=== PATIENT | female | born 1940 | race Caucasian/White ===

== ENCOUNTER → 2018-02-08 | Emergency (ER) | payer MEDICARE, OTHER ==
[~2018-02-08] VITALS: Ht 162.6 cm; Wt 54.0 kg
[~2018-02-08] MED LIST: niCARDipine/sod cl 20mg/200ml 200 ML IV SCH
[2018-02-08 11:42] LABS: BASOPHILS # (AUTO) 0.1 X10'3 (0-0.2); BASOPHILS % (AUTO) 0.9 % (0-1); EOSINOPHILS # (AUTO) 0.1 X10'3 (0-0.9); EOSINOPHILS % (AUTO) 1.8 % (0-6); HEMATOCRIT 40.7 % (35.0-45.0); LYMPHOCYTES # (AUTO) 1.7 X10'3 (1.1-4.8); LYMPHOCYTES % (AUTO) 21.8 % (21-51); MEAN CORPUSCULAR HEMOGLOBIN 30.4 PG (27.0-31.0); MEAN CORPUSCULAR HGB CONC 34.4 % (33.0-36.5); MEAN CORPUSCULAR VOLUME 88.5 FL (78-98); MEAN PLATELET VOLUME 6.8 FL (7.4-10.4); MONOCYTES # (AUTO) 0.6 X10'3 (0-0.9); MONOCYTES % (AUTO) 7.1 % (2-12); NEUTROPHILS # (AUTO) 5.4 X10'3 (1.8-7.7); NEUTROPHILS % (AUTO) 68.4 % (42-75); PLATELET COUNT 289 X10'3 (140-440); RED CELL DISTRIBUTION WIDTH 13.8 % (11.5-14.5); WHITE BLOOD COUNT 7.9 X10'3 (4.5-11.0)
[2018-02-08 11:48] LABS: PARTIAL THROMBOPLASTIN TIME 24 SECONDS (22-32)
[2018-02-08 11:54] VITALS: BP 178/107
[2018-02-08 11:57] LABS: ALANINE AMINOTRANSFERASE 27 U/L (12-78); ALBUMIN 4.2 G/DL (3.4-5.0); ALBUMIN/GLOBULIN RATIO 1.2 (1.1-1.5); ALKALINE PHOSPHATASE 86 IU/L (46-116); ANION GAP 9 (8-16); ASPARTATE AMINO TRANSFERASE 22 U/L (10-37); BILIRUBIN,TOTAL 0.5 MG/DL (0.1-1.0); BLOOD UREA NITROGEN 13 MG/DL (7-18); BUN/CREATININE RATIO 13.7 (6.6-38.0); CALCIUM 9.8 MG/DL (8.5-10.1); CHLORIDE 101 MMOL/L (99-107); CREATININE 0.95 MG/DL (0.40-0.90); GLUCOSE 112 MG/DL (70-104); POTASSIUM 3.4 MMOL/L (3.5-5.1); SODIUM 140 MMOL/L (135-145); TOTAL PROTEIN 7.8 G/DL (6.4-8.2); TROPONIN I < 0.04 NG/ML (0.0-0.05); eGFR 57 ML/MIN
== END | disposition short-term general hospital (02) ==
LOC: ER 11:15
DX: I61.9 Nontraumatic intracerebral hemorrhage, unspecified (principal); I47.1 Supraventricular tachycardia; I16.0 Hypertensive urgency; Z88.0 Allergy status to penicillin; Z88.5 Allergy status to narcotic agent; Z88.2 Allergy status to sulfonamides; Z85.3 Personal history of malignant neoplasm of breast
CPT/HCPCS: 36415; 70450; 71045; 80053; 82948; 83880; 84484; 85025; 85610; 85730; 93005; 99291

== ENCOUNTER 2019-03-13 05:26 | Inpatient (IN) | payer MEDICARE, OTHER ==
[~2019-03-13] VITALS: Ht 165.1 cm; Wt 60.0 kg
[2019-03-13 06:30] LABS: EOSINOPHILS # (AUTO) 0.1 X10'3 (0-0.9); EOSINOPHILS % (AUTO) 2.3 % (0-6); HEMATOCRIT 35.8 % (35.0-45.0); HEMOGLOBIN 11.9 g/dl (12.0-16.0); LYMPHOCYTES # (AUTO) 0.5 X10'3 (1.1-4.8); LYMPHOCYTES % (AUTO) 11.8 % (21-51); MEAN CORPUSCULAR HEMOGLOBIN 27.6 PG (27.0-31.0); MEAN CORPUSCULAR HGB CONC 33.3 g/dL (33.0-36.5); MEAN CORPUSCULAR VOLUME 82.8 FL (78-98); MEAN PLATELET VOLUME 6.3 FL (7.4-10.4); MONOCYTES # (AUTO) 0.6 X10'3 (0-0.9); MONOCYTES % (AUTO) 13.1 % (2-12); NEUTROPHILS # (AUTO) 3.2 X10'3 (1.8-7.7); NEUTROPHILS % (AUTO) 71.8 % (42-75); PLATELET COUNT 334 X10'3 (140-440); RED BLOOD COUNT 4.32 X10'6 (4.20-5.60); RED CELL DISTRIBUTION WIDTH 14.9 % (11.5-14.5); WHITE BLOOD COUNT 4.4 X10'3 (4.5-11.0)
[2019-03-13] MEDS ORDERED: AMLO2.5T2 PO (06:34)
[2019-03-13] MEDS ORDERED: KEP500T PO (06:34)
[2019-03-13] MEDS ORDERED: DOXY25TA58 (06:35)
[2019-03-13 06:42] LABS: ALANINE AMINOTRANSFERASE 17 U/L (12-78); ALBUMIN/GLOBULIN RATIO 0.9 (1.1-1.5); ALKALINE PHOSPHATASE 167 IU/L (46-116); ANION GAP 8 (8-16); ASPARTATE AMINO TRANSFERASE 19 U/L (10-37); BILIRUBIN,TOTAL 0.3 MG/DL (0.1-1.0); BLOOD UREA NITROGEN 11 MG/DL (7-18); BUN/CREATININE RATIO 11.3 (6.6-38.0); CALCIUM 9.1 MG/DL (8.5-10.1); CHLORIDE 106 MMOL/L (99-107); CREATININE 0.97 MG/DL (0.40-0.90); GLUCOSE 96 MG/DL (70-104); POTASSIUM 3.6 MMOL/L (3.5-5.1); SODIUM 142 MMOL/L (135-145); TOTAL CARBON DIOXIDE 28.5 MMOL/L (24-32); TOTAL PROTEIN 6.3 G/DL (6.4-8.2); eGFR 55 ML/MIN
[2019-03-13 06:49] LABS: INR 1.1 INR; PARTIAL THROMBOPLASTIN TIME 27 SECONDS (22-32)
[2019-03-13] MEDS ORDERED: LIDOcaine 1% 30ml preserv. free vial IJ ONE (07:05)
--- NOTE | 2019-03-13 08:49 | NUR ---
pt signed consent for thoracentesis and procedure done and 800ml drained off. sample sent to lab. pt started to cough pretty good at end of fluid draining.
[2019-03-13] MEDS ORDERED: diatrozoate meglu/diatrozoate sod (37% iodine) 120ML oral solution PO ONE (09:00)
[2019-03-13] MEDS ORDERED: potassium Cl 40MEQ/NS 500ml 500 ML IV PRN ×2 (09:10)
[2019-03-13] MEDS ORDERED: ondansetron/PF 4mg/2ml inj IV PRN (09:10)
[2019-03-13] MEDS ORDERED: potassium Cl 20 mEq SR tablet PO PRN ×2 (09:10)
[2019-03-13] MEDS ORDERED: magnesium Cl slow-release 64mg tablet PO PRN (09:10)
[2019-03-13] MEDS ORDERED: magnesium 4gm in 100ml NS 100 ML IV PRN (09:10)
[2019-03-13] MEDS ORDERED: magnesium 2GM in 50ml NS 50 ML IV PRN (09:10)
[2019-03-13] MEDS ORDERED: mag hydrox/Alum hydrox/simeth 30ml oral suspension PO PRN (09:10)
[2019-03-13] MEDS ORDERED: acetaminophen 325mg tablet PO PRN ×2 (09:10)
[2019-03-13] MEDS ORDERED: HYDROcodone/acetaminophen 5mg/325mg tablet PO PRN (09:10)
[2019-03-13] MEDS ORDERED: magnesium hydroxide 30ml (MOM) UD suspension PO PRN (09:10)
[2019-03-13] MEDS ORDERED: morphine 2 MG/ML inj. syringe IV PRN (09:10)
[2019-03-13 09:13] LABS: ALBUMIN,BODY FLUID 2.6 G/DL; LDH,BODY FLUID 197 U/L; TOTAL PROTEIN,BODY FLUID 4.3 G/DL
[2019-03-13 09:16] LABS: BFAPPEAR CLOUDY; BFCOLOR RED; BFVOLUME 30 ML
[2019-03-13 09:17] LABS: BF RBC COUNT 163856 /CU MM; BF WBC COUNT 605 /CU MM (0-1000)
[2019-03-13 09:23] LABS: EOSINOPHILS,BODY FLUID 2 %; LYMPHOCYTES,BODY FLUID 63 %; MONOCYTES,BODY FLUID 25 %; NEUTROPHILS,BODY FLUID 10 %
[2019-03-13 09:24] LABS: BF MESOTHELIAL CELLS MODERATE
[2019-03-13 09:33] LABS: BFSOURCE LEFT PLEURAL FLD
[2019-03-13] MEDS: normal saline 1000ml 1,000 ML IV SCH (09:44)
--- NOTE | 2019-03-13 09:45 | NUR ---
ivf bag was not scanning
[2019-03-13 10:00] VITALS: BP 90/55
--- NOTE | 2019-03-13 10:08 | NUR ---
ATTEMPTED TO CALL REPORT. NURSE IS ROUNDING WITH THE HOSPITALIST ON THE FLOOR.
--- NOTE | 2019-03-13 10:20 | NUR ---
Patient in room ORTHO 4021. I have received report from Basia GUZMÁN in the ER and had the opportunity to ask questions and assume patient care.
[2019-03-13 10:45] VITALS: BP 125/69
--- NOTE | 2019-03-13 10:45 | NUR ---
Patient came to floor and went to room 4026X
--- NOTE | 2019-03-13 11:48 | NUR ---
CT called and no order for contrast has been put in wit CT of head and chest order, Dr. Will paged to ask for contrast order, will continue to monitor
[2019-03-13] MEDS: albuterol 2.5 MG/3 ML nebule NEB SCH (12:00)
[2019-03-13 18:00] VITALS: BP 147/78
--- NOTE | 2019-03-13 18:15 | NUR ---
Problems reprioritized. Patient report given, questions answered & plan of care reviewed with Alannah GUZMÁN.
--- NOTE | 2019-03-13 18:52 | NUR ---
Patient in room ORTHO 4021. I have received report from Saleem GUZMÁN and had the opportunity to ask questions and assume patient care.
[2019-03-13] MEDS: heparin, porcine 5000 units/ml vial SQ SCH (19:15)
[2019-03-13] MEDS: levetiracetam 250mg tablet PO SCH (19:16)
--- NOTE | 2019-03-13 20:34 | NUR ---
PATIENT REFUSED HEPARIN TONIGHT. BOTH SHE AND HER STATED SHE IS NOT TO HAVE ANY ANTICOAGS D/T MICRO HOLES IN HER SKULL, PER PATIENT'S MD. WILL ASK THEM TO BRING ANY DOCUMENTATION SUCH. DR. MANE NOTIFIED, AND WILL INFORM DAY SHIFT OF THIS.
[2019-03-13] MEDS ORDERED: diatr meglu/diatrizoate 30ml oral sol.-(3 dose) bottle PO ONE (21:00)
[2019-03-13 22:00] VITALS: BP 123/73
[2019-03-14] MEDS: normal saline 1000ml 1,000 ML IV SCH ×2 (01:41→13:44)
[2019-03-14 06:00] VITALS: BP 110/66
--- NOTE | 2019-03-14 06:32 | NUR ---
Problems reprioritized. Patient report given, questions answered & plan of care reviewed with Saleem GUZMÁN.
--- NOTE | 2019-03-14 06:38 | NUR ---
Patient in room ORTHO 4021. I have received report from Alannah GUZMÁN and had the opportunity to ask questions and assume patient care.
[2019-03-14] MEDS ORDERED: diatr meglu/diatrizoate 30ml oral sol.-(3 dose) bottle PO ONE ×2 (07:00→09:00)
[2019-03-14 07:19] LABS: BASOPHILS % (AUTO) 0.9 % (0-1); EOSINOPHILS # (AUTO) 0.1 X10'3 (0-0.9); EOSINOPHILS % (AUTO) 2.2 % (0-6); HEMATOCRIT 35.1 % (35.0-45.0); HEMOGLOBIN 11.6 g/dl (12.0-16.0); LYMPHOCYTES # (AUTO) 0.5 X10'3 (1.1-4.8); LYMPHOCYTES % (AUTO) 10.3 % (21-51); MEAN CORPUSCULAR HGB CONC 33.2 g/dL (33.0-36.5); MEAN CORPUSCULAR VOLUME 84.3 FL (78-98); MEAN PLATELET VOLUME 6.5 FL (7.4-10.4); MONOCYTES # (AUTO) 0.5 X10'3 (0-0.9); MONOCYTES % (AUTO) 9.8 % (2-12); NEUTROPHILS # (AUTO) 3.9 X10'3 (1.8-7.7); NEUTROPHILS % (AUTO) 76.8 % (42-75); PLATELET COUNT 320 X10'3 (140-440); RED BLOOD COUNT 4.16 X10'6 (4.20-5.60); RED CELL DISTRIBUTION WIDTH 14.6 % (11.5-14.5)
[2019-03-14] MEDS: levetiracetam 250mg tablet PO SCH (07:21)
[2019-03-14] MEDS: heparin, porcine 5000 units/ml vial SQ SCH (07:23)
[2019-03-14] MEDS: albuterol 2.5 MG/3 ML nebule NEB SCH ×4 (07:30→12:08)
--- NOTE | 2019-03-14 07:31 | NUR ---
Respiratory has not administered neb treatment will page and continue to monitor patient
[2019-03-14 07:35] LABS: ALANINE AMINOTRANSFERASE 15 U/L (12-78); ALBUMIN 2.7 G/DL (3.4-5.0); ALBUMIN/GLOBULIN RATIO 0.9 (1.1-1.5); ALKALINE PHOSPHATASE 151 IU/L (46-116); ANION GAP 8 (8-16); ASPARTATE AMINO TRANSFERASE 17 U/L (10-37); BILIRUBIN,TOTAL 0.4 MG/DL (0.1-1.0); BLOOD UREA NITROGEN 9 MG/DL (7-18); BUN/CREATININE RATIO 11.5 (6.6-38.0); CALCIUM 8.3 MG/DL (8.5-10.1); CHLORIDE 108 MMOL/L (99-107); CREATININE 0.78 MG/DL (0.40-0.90); GLUCOSE 89 MG/DL (70-104); POTASSIUM 3.5 MMOL/L (3.5-5.1); SODIUM 143 MMOL/L (135-145); TOTAL CARBON DIOXIDE 27.5 MMOL/L (24-32); TOTAL PROTEIN 5.8 G/DL (6.4-8.2); eGFR 71 ML/MIN
[2019-03-14] MEDS ORDERED: furosemide 10 MG/1 ML 10ml inj IV SCH (08:00)
[2019-03-14] MEDS ORDERED: K and/or MAG REPLACEMENT MC SCH (08:00)
[2019-03-14] MEDS ORDERED: amLODIPine 2.5mg tablet PO SCH (08:00)
[2019-03-14] MEDS ORDERED: iohexol 300mg/ml 100ml inj. ONE (09:13)
[2019-03-14 09:16] LABS: LACTATE DEHYDROGENASE 207 U/L (81-234)
--- NOTE | 2019-03-14 09:54 | NUR ---
RT WAS NEVER NOTIFIED ON 03/13 ABOUT PTS NEW SVN ORDERS UNTIL 03/14 AT 0947. MEDS HAVE BEEN ACKNOWLEDGED AND NON ADMINISTERED BY RN SINCE YESTERDAY. WILL START SCHEDULED SVN TXS 1100
[2019-03-14 10:00] VITALS: BP 108/68
[2019-03-14] MEDS ORDERED: metoprolol tartrate 12.5mg (1/2 tablet) PO SCH ×2 (11:50→20:00)
[2019-03-14 11:55] VITALS: BP_SYST 108
--- NOTE | 2019-03-14 12:49 | NUR ---
O2 Sat at rest on room air:_92__% If below 89%: Recovery O2 Sat at rest on ___LPM:___%:___% via (mask/nasal cannula, etc..) No further documentation is necessary. If O2 Sat did not drop below 89% on room air,ambulate patient on room air. O2 Sat while ambulating on room air:_88__% Recovery O2 Sat while ambulating on _2__LPM:__95_% No further documentation is necessary. If patient does not drop below 89% while ambulating, he/she does not qualify for home O2.
--- NOTE | 2019-03-14 12:59 | NUR ---
paged Dr. trujillo that Patient qualified for Home O2, also re outpatient biopsy please call me
--- NOTE | 2019-03-14 13:45 | NUR ---
PAGER ID: [phone] MESSAGE: Julissa Radha0 grupo Rafiq Anderson in [id number]- we need a qualifying dx code in order for medicare to pay for the o2. She did physically qualify but we need a dx code (such as lung malignancy?) clearly stated in your progress note or dc summary. Thanks!
--- NOTE | 2019-03-14 13:47 | NUR ---
per she will write her progress note with her findings so will be available
[2019-03-14] MEDS ORDERED: METO25TA6 PO (14:52)
--- NOTE | 2019-03-14 15:19 | NUR ---
Dr. Will paged to Please call isabell at ext [phone] re diagnosis codes to qualify for home O2, will continue to monitor
--- NOTE | 2019-03-14 16:37 | NUR ---
Patient discharged to home with , patient was stable at discharge and had home O2 delivered to hospital room, patient educated on discharge instructions and follow up appointments, new medications called into preferred pharmacy
== END 2019-03-14 16:29 | disposition home or self-care (01) | DRG 189 ==
LOC: ER 05:26 → ORTHO 4S 11:03
PROVIDERS: ADMIT Internal Medicine; ATTEND Internal Medicine
PROC: 0W9B3ZZ Drainage of Left Pleural Cavity, Percutaneous Approach (ICD-10-PCS; principal; 2019-03-13)
PROC: BW281ZZ Computerized Tomography (CT Scan) of Head using Low Osmolar Contrast (ICD-10-PCS; 2019-03-14)
PROC: BW251ZZ Computerized Tomography (CT Scan) of Chest, Abdomen and Pelvis using Low Osmolar Contrast (ICD-10-PCS; 2019-03-14)
DX: J96.01 Acute respiratory failure with hypoxia (principal); I47.1 Supraventricular tachycardia; J90 Pleural effusion, not elsewhere classified; E04.2 Nontoxic multinodular goiter; G40.909 Epilepsy, unspecified, not intractable, without status epilepticus; I10 Essential (primary) hypertension; R74.8 Abnormal levels of other serum enzymes; K80.20 Calculus of gallbladder without cholecystitis without obstruction; Z88.0 Allergy status to penicillin; Z88.2 Allergy status to sulfonamides; Z88.5 Allergy status to narcotic agent; Z79.899 Other long term (current) drug therapy; Z85.3 Personal history of malignant neoplasm of breast
CPT/HCPCS: 32555; 36415; 70470; 71045; 71260; 74177; 80053; 82042; 83605; 83615; 83735; 83986; 84157; 85025; 85379; 85610; 85730; 87040; 87070; 87077; 87186; 88108; 88305; 89051; 93005; 93306; 94640; 94760; 97116; 97161; 97530; 99285; G0378; J1644; J1940; J3490; J7030; Q9963; Q9967

== ENCOUNTER 2019-03-19 08:46 | Inpatient (IN) | payer MEDICARE, OTHER ==
[~2019-03-19] VITALS: Ht 162.6 cm; Wt 58.3 kg
[~2019-03-19 08:46] MED LIST changes: +AMLO2.5T2 PO; +DOXY25TA58; +KEP500T PO; +METO25TA6 PO; -niCARDipine/sod cl 20mg/200ml 200 ML IV SCH
[2019-03-19 09:25] LABS: BASOPHILS # (AUTO) 0.1 X10'3 (0-0.2); BASOPHILS % (AUTO) 1.2 % (0-1); EOSINOPHILS # (AUTO) 0.1 X10'3 (0-0.9); EOSINOPHILS % (AUTO) 1.6 % (0-6); HEMATOCRIT 36.6 % (35.0-45.0); HEMOGLOBIN 12.2 g/dl (12.0-16.0); LYMPHOCYTES # (AUTO) 0.9 X10'3 (1.1-4.8); LYMPHOCYTES % (AUTO) 12.1 % (21-51); MEAN CORPUSCULAR HEMOGLOBIN 27.4 PG (27.0-31.0); MEAN CORPUSCULAR HGB CONC 33.4 g/dL (33.0-36.5); MEAN PLATELET VOLUME 6.5 FL (7.4-10.4); MONOCYTES # (AUTO) 0.7 X10'3 (0-0.9); MONOCYTES % (AUTO) 9.1 % (2-12); NEUTROPHILS # (AUTO) 5.5 X10'3 (1.8-7.7); PLATELET COUNT 395 X10'3 (140-440); RED BLOOD COUNT 4.46 X10'6 (4.20-5.60); RED CELL DISTRIBUTION WIDTH 14.6 % (11.5-14.5); WHITE BLOOD COUNT 7.3 X10'3 (4.5-11.0)
[2019-03-19 09:44] LABS: ALBUMIN 2.7 G/DL (3.4-5.0); ALBUMIN/GLOBULIN RATIO 0.8 (1.1-1.5); ALKALINE PHOSPHATASE 154 IU/L (46-116); ANION GAP 10 (8-16); ASPARTATE AMINO TRANSFERASE 10 U/L (10-37); BILIRUBIN,TOTAL 0.2 MG/DL (0.1-1.0); BLOOD UREA NITROGEN 19 MG/DL (7-18); BUN/CREATININE RATIO 22.6 (6.6-38.0); CALCIUM 8.6 MG/DL (8.5-10.1); CHLORIDE 103 MMOL/L (99-107); CREATININE 0.84 MG/DL (0.40-0.90); GLUCOSE 112 MG/DL (70-104); POTASSIUM 3.3 MMOL/L (3.5-5.1); SODIUM 140 MMOL/L (135-145); TOTAL CARBON DIOXIDE 27.2 MMOL/L (24-32); TOTAL PROTEIN 6.2 G/DL (6.4-8.2); eGFR 65 ML/MIN
[2019-03-19 10:00] LABS: PARTIAL THROMBOPLASTIN TIME 27 SECONDS (22-32)
[2019-03-19 10:03] LABS: ALANINE AMINOTRANSFERASE 19 U/L (12-78)
--- NOTE | 2019-03-19 10:05 | NUR ---
assisted to bsc per patient's request.
--- NOTE | 2019-03-19 10:40 | NUR ---
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
[2019-03-19] MEDS ORDERED: mag hydrox/Alum hydrox/simeth 30ml oral suspension PO PRN (11:45)
[2019-03-19] MEDS ORDERED: ondansetron/PF 4mg/2ml inj IV PRN (11:45)
[2019-03-19] MEDS ORDERED: magnesium hydroxide 30ml (MOM) UD suspension PO PRN (11:45)
[2019-03-19] MEDS ORDERED: LIDOcaine 1%/PF 5ML 10 MG/ML VIAL ONE (15:08)
--- NOTE | 2019-03-19 15:42 | NUR ---
I have received report from Rayne GUZMÁN in the ED and had the opportunity to ask questions and assume patient care.
[2019-03-19 15:45] VITALS: BP 136/82
[2019-03-19 15:48] VITALS: BP 132/80
--- NOTE | 2019-03-19 15:57 | NUR ---
Patient arrived to the unit, placed on telemetry monitoring, vital signs obtained, belongings placed on bedside dresser, and patient oriented to the room and call light. Chest tube clamped per IR. Will continue to monitor patient. Addendum: 03/19/19 at 1821 by Lulu Aguilera RN 2 RN skin check completed
[2019-03-19] MEDS: HYDROcodone/acetaminophen 5mg/325mg tablet PO PRN (17:41)
--- NOTE | 2019-03-19 17:44 | NUR ---
PAGER ID: [phone] MESSAGE: [phone] Celestina Shaikh Pt's family is asking if lung biopsy will be done, chest tube placed, no order for biopsy. Thank you. Please call Lulu # [phone]
--- NOTE | 2019-03-19 18:15 | NUR ---
Patient in room PCU 3027. I have received report from Lulu GUZMÁN and had the opportunity to ask questions and assume patient care.
[2019-03-19 18:18] VITALS: BP 114/72
--- NOTE | 2019-03-19 18:25 | NUR ---
PAGER ID: [phone] MESSAGE: RE: Rafiq Anderson, room 2027t. Pt has consistant HR of 165, BP 131/88. Family has questions concerning future biopsy of lung mass. Thanks! -Sim [facility] [place] #[id number]
--- NOTE | 2019-03-19 18:25 | NUR ---
Problems reprioritized. Patient report given, questions answered & plan of care reviewed with Sim GUZMÁN. Patient stable at transfer of care.
[2019-03-19] MEDS ORDERED: diltiazem 5mg/ml 5ml inj. IV ONE (18:30)
--- NOTE | 2019-03-19 18:35 | NUR ---
Dr. Renteria ordered 10mg IV of cardizem for Pts HR 165
--- NOTE | 2019-03-19 19:03 | NUR ---
PAGER ID: [phone] MESSAGE: SAMUEL Rafiq Anderson, room 202. 10mg Cardizem IV given. HR dropped to 80s for 5 minutes. Now in the 140-150s -Sim PCU #[id number]
[2019-03-19] MEDS: levetiracetam 250mg tablet PO SCH (19:59)
--- NOTE | 2019-03-19 20:25 | NUR ---
Patient in room PCU 3027. I have received report from Sim GUZMÁN and had the opportunity to ask questions and assume patient care.
--- NOTE | 2019-03-19 20:25 | NUR ---
Problems reprioritized. Patient report given, questions answered & plan of care reviewed with Augusto GUZMÁN.
[2019-03-19] MEDS: metoprolol tartrate 12.5mg (1/2 tablet) PO SCH (20:37)
[2019-03-19 23:00] VITALS: BP 106/64
[2019-03-20] VITALS (19 sets, daily range): BP systolic 94–125; BP diastolic 57–96
--- NOTE | 2019-03-20 01:51 | NUR ---
Paged Dr. Duffy PAGER ID: [phone] MESSAGE: Dez GUZMÁN [phone] [id number] Rafiq Anderson: K+ 3.3. No replacement ordered. Would you like to order K+ replacement protocol? Thank you.
[2019-03-20] MEDS ORDERED: potassium Cl 20 mEq SR tablet PO PRN ×2 (01:55)
[2019-03-20] MEDS ORDERED: potassium Cl 40MEQ/NS 500ml 500 ML IV PRN ×2 (01:55)
[2019-03-20 05:23] LABS: ALBUMIN 2.4 G/DL (3.4-5.0); ANION GAP 8 (8-16); BASOPHILS # (AUTO) 0.1 X10'3 (0-0.2); BASOPHILS % (AUTO) 1.2 % (0-1); BLOOD UREA NITROGEN 18 MG/DL (7-18); CALCIUM 8.6 MG/DL (8.5-10.1); CHLORIDE 103 MMOL/L (99-107); CREATININE 0.82 MG/DL (0.40-0.90); EOSINOPHILS % (AUTO) 0.4 % (0-6); GLUCOSE 96 MG/DL (70-104); HEMOGLOBIN 11.5 g/dl (12.0-16.0); LYMPHOCYTES # (AUTO) 0.9 X10'3 (1.1-4.8); LYMPHOCYTES % (AUTO) 11.6 % (21-51); MEAN CORPUSCULAR HEMOGLOBIN 27.5 PG (27.0-31.0); MEAN CORPUSCULAR HGB CONC 33.7 g/dL (33.0-36.5); MEAN CORPUSCULAR VOLUME 81.7 FL (78-98); MEAN PLATELET VOLUME 6.6 FL (7.4-10.4); MONOCYTES # (AUTO) 0.5 X10'3 (0-0.9); MONOCYTES % (AUTO) 6.1 % (2-12); NEUTROPHILS # (AUTO) 6.6 X10'3 (1.8-7.7); NEUTROPHILS % (AUTO) 80.7 % (42-75); PLATELET COUNT 398 X10'3 (140-440); RED BLOOD COUNT 4.16 X10'6 (4.20-5.60); RED CELL DISTRIBUTION WIDTH 14.6 % (11.5-14.5); SODIUM 139 MMOL/L (135-145); TOTAL CARBON DIOXIDE 28.2 MMOL/L (24-32); WHITE BLOOD COUNT 8.2 X10'3 (4.5-11.0); eGFR 67 ML/MIN
--- NOTE | 2019-03-20 07:35 | NUR ---
Chest tube unclamped per angio's request, placed on low continuous suction @ 20mmHg. Yesterday's drainage marked to track output from today.
[2019-03-20] MEDS: levetiracetam 250mg tablet PO SCH ×2 (07:40→20:21)
[2019-03-20] MEDS: metoprolol tartrate 12.5mg (1/2 tablet) PO SCH ×2 (07:43→20:22)
[2019-03-20] MEDS: amLODIPine 2.5mg tablet PO SCH (07:43)
[2019-03-20] MEDS ORDERED: enoxaparin 40mg/0.4ml syringe SUBCUT SCH (08:00)
--- NOTE | 2019-03-20 08:02 | NUR ---
Patient in room PCU 3027. I have received report from Dez GUZMÁN and had the opportunity to ask questions and assume patient care. Patient sleeping, will continue to monitor
[2019-03-20] MEDS ORDERED: normal saline 1000ml 1,000 ML IV SCH (10:57)
[2019-03-20] MEDS ORDERED: fentaNYL/PF 50MCG/1 ML 2ML syringe IV PRN (11:00)
[2019-03-20] MEDS ORDERED: midazolam 2 mg/2 ml injection IV PRN (11:00)
[2019-03-20] MEDS ORDERED: LIDOcaine 1%/PF 5ML 10 MG/ML VIAL SQ ONE (11:00)
[2019-03-20] MEDS ORDERED: fentaNYL/PF 50MCG/1 ML 2ML syringe ONE (11:01)
[2019-03-20] MEDS ORDERED: midazolam 2 mg/2 ml injection ONE (11:01)
--- NOTE | 2019-03-20 12:14 | NUR ---
Sent page to Dr. Renteria: PAGER ID: [phone] MESSAGE: [id number] Rafiq Anderson: Patient is vomiting after receiving fentanyl during biopsy. Zofran is ineffective, can she have something else? Thanks, Lulu [phone]
[2019-03-20] MEDS ORDERED: metoclopramide 5 mg/ml inj IV PRN (12:15)
--- NOTE | 2019-03-20 14:00 | NUR ---
Noticed patient's chest tube water seal chamber was not bubbling at all. Suction works and is properly attached. Called Christy GUZMÁN in Angio, she said no bubbling is okay because the chest tube is purely for drainage. Will continue to monitor.
--- NOTE | 2019-03-20 18:15 | NUR ---
Patient in room PCU 3027. I have received report from Lulu GUZMÁN and had the opportunity to ask questions and assume patient care.
--- NOTE | 2019-03-20 18:16 | NUR ---
Problems reprioritized. Patient report given, questions answered & plan of care reviewed with Dez GUZMÁN. Patient stable at transfer of care.
[2019-03-21] VITALS (7 sets, daily range): BP systolic 103–122; BP diastolic 59–74
[2019-03-21 05:31] LABS: ALBUMIN 2.2 G/DL (3.4-5.0); ANION GAP 7 (8-16); BLOOD UREA NITROGEN 18 MG/DL (7-18); BUN/CREATININE RATIO 23.7 (6.6-38.0); CALCIUM 8.1 MG/DL (8.5-10.1); CHLORIDE 107 MMOL/L (99-107); CREATININE 0.76 MG/DL (0.40-0.90); GLUCOSE 86 MG/DL (70-104); POTASSIUM 4.1 MMOL/L (3.5-5.1); SODIUM 139 MMOL/L (135-145); TOTAL CARBON DIOXIDE 25.3 MMOL/L (24-32); eGFR 73 ML/MIN
[2019-03-21 05:48] LABS: BASOPHILS # (AUTO) 0.1 X10'3 (0-0.2); BASOPHILS % (AUTO) 0.7 % (0-1); EOSINOPHILS # (AUTO) 0.1 X10'3 (0-0.9); HEMATOCRIT 32.8 % (35.0-45.0); LYMPHOCYTES # (AUTO) 0.6 X10'3 (1.1-4.8); LYMPHOCYTES % (AUTO) 7.9 % (21-51); MEAN CORPUSCULAR HEMOGLOBIN 27.5 PG (27.0-31.0); MEAN CORPUSCULAR HGB CONC 33.4 g/dL (33.0-36.5); MEAN CORPUSCULAR VOLUME 82.3 FL (78-98); MEAN PLATELET VOLUME 6.4 FL (7.4-10.4); MONOCYTES # (AUTO) 0.7 X10'3 (0-0.9); MONOCYTES % (AUTO) 8.3 % (2-12); NEUTROPHILS # (AUTO) 6.6 X10'3 (1.8-7.7); NEUTROPHILS % (AUTO) 82.1 % (42-75); PLATELET COUNT 395 X10'3 (140-440); RED BLOOD COUNT 3.99 X10'6 (4.20-5.60); RED CELL DISTRIBUTION WIDTH 14.6 % (11.5-14.5); WHITE BLOOD COUNT 8.1 X10'3 (4.5-11.0)
--- NOTE | 2019-03-21 06:18 | NUR ---
Patient in room PCU 3027. I have received report from Dez GUZMÁN and had the opportunity to ask questions and assume patient care. Patient sleeping, will continue to monitor.
--- NOTE | 2019-03-21 06:20 | NUR ---
Problems reprioritized. Patient report given, questions answered & plan of care reviewed with Lulu GUZMÁN.
[2019-03-21] MEDS: metoprolol tartrate 12.5mg (1/2 tablet) PO SCH ×2 (08:00→20:16)
[2019-03-21] MEDS: amLODIPine 2.5mg tablet PO SCH (08:00)
[2019-03-21] MEDS: levetiracetam 250mg tablet PO SCH ×2 (08:15→20:16)
[2019-03-21] MEDS: acetaminophen 325mg tablet PO PRN ×2 (14:58→20:17)
--- NOTE | 2019-03-21 18:30 | NUR ---
Problems reprioritized. Patient report given, questions answered & plan of care reviewed with Leti GUZMÁN.
--- NOTE | 2019-03-21 19:14 | NUR ---
Patient in room PCU 3027. I have received report from Leti GUZMÁN and had the opportunity to ask questions and assume patient care.
[2019-03-21] MEDS ORDERED: temazepam 15mg capsule PO PRN (21:25)
[2019-03-21] MEDS: HYDROcodone/acetaminophen 5mg/325mg tablet PO PRN (23:08)
[2019-03-22 02:00] VITALS: BP 100/62
[2019-03-22 06:24] LABS: ALBUMIN 2.3 G/DL (3.4-5.0); ANION GAP 7 (8-16); BLOOD UREA NITROGEN 16 MG/DL (7-18); BUN/CREATININE RATIO 20.8 (6.6-38.0); CALCIUM 8.1 MG/DL (8.5-10.1); CHLORIDE 106 MMOL/L (99-107); CREATININE 0.77 MG/DL (0.40-0.90); GLUCOSE 110 MG/DL (70-104); POTASSIUM 3.6 MMOL/L (3.5-5.1); SODIUM 139 MMOL/L (135-145); TOTAL CARBON DIOXIDE 25.9 MMOL/L (24-32); eGFR 72 ML/MIN
[2019-03-22 06:34] LABS: BASOPHILS # (AUTO) 0.1 X10'3 (0-0.2); BASOPHILS % (AUTO) 0.8 % (0-1); EOSINOPHILS # (AUTO) 0.3 X10'3 (0-0.9); EOSINOPHILS % (AUTO) 3.2 % (0-6); HEMATOCRIT 36.2 % (35.0-45.0); HEMOGLOBIN 12.2 g/dl (12.0-16.0); LYMPHOCYTES # (AUTO) 0.6 X10'3 (1.1-4.8); LYMPHOCYTES % (AUTO) 8.3 % (21-51); MEAN CORPUSCULAR HEMOGLOBIN 27.4 PG (27.0-31.0); MEAN CORPUSCULAR HGB CONC 33.6 g/dL (33.0-36.5); MEAN CORPUSCULAR VOLUME 81.7 FL (78-98); MEAN PLATELET VOLUME 6.5 FL (7.4-10.4); MONOCYTES # (AUTO) 0.6 X10'3 (0-0.9); MONOCYTES % (AUTO) 7.7 % (2-12); NEUTROPHILS # (AUTO) 6.3 X10'3 (1.8-7.7); PLATELET COUNT 426 X10'3 (140-440); RED BLOOD COUNT 4.43 X10'6 (4.20-5.60); RED CELL DISTRIBUTION WIDTH 14.8 % (11.5-14.5); WHITE BLOOD COUNT 7.8 X10'3 (4.5-11.0)
--- NOTE | 2019-03-22 06:56 | NUR ---
Problems reprioritized. Patient report given, questions answered & plan of care reviewed with Jesenia GUZMÁN.
--- NOTE | 2019-03-22 06:59 | NUR ---
Patient in room PCU 3024. I have received report from Mena GUZMÁN and had the opportunity to ask questions and assume patient care.
[2019-03-22 07:00] VITALS: BP 106/67
[2019-03-22] MEDS: amLODIPine 2.5mg tablet PO SCH ×2 (08:00→09:10)
[2019-03-22] MEDS: metoprolol tartrate 12.5mg (1/2 tablet) PO SCH ×2 (09:10→20:29)
[2019-03-22] MEDS: levetiracetam 250mg tablet PO SCH ×2 (09:10→20:27)
--- NOTE | 2019-03-22 09:20 | NUR ---
Inadvertently disposed of the tylenol for this patient.
[2019-03-22] MEDS ORDERED: acetaminophen 325mg tablet PO PRN (09:30)
[2019-03-22 11:00] VITALS: BP 104/64
--- NOTE | 2019-03-22 13:02 | NUR ---
PAGER ID: [phone] MESSAGE: Efrain [id number]. Pt c/o arm seizure and would like to have her Keppra increased. Jesenia [phone]
[2019-03-22 15:00] VITALS: BP 110/69
--- NOTE | 2019-03-22 15:11 | NUR ---
Malnutrition Consult: Pt admit w/ SOB found to have L lung pleural effusion and L lung mass currently pending biopsy. Pt has no edema, weakness, or wt loss hx. PO 50-75% regular meals up from admit. Pt lacks minimum malnutrition criteria at this time. Will monitor for ONS needs. Addendum: 03/22/19 at [address] Amended: Links added.
[2019-03-22 18:30] VITALS: BP 112/64
--- NOTE | 2019-03-22 18:47 | NUR ---
Patient in room U 3024. I have received report from WIN GUZMÁN and had the opportunity to ask questions and assume patient care. Addendum: 03/22/19 at 1847 by Elizabeth Timmons RN Amended: Links added.
--- NOTE | 2019-03-22 19:02 | NUR ---
Problems reprioritized. Patient report given, questions answered & plan of care reviewed with Elizabeth GUZMÁN. Patient stable at transfer of care.
--- NOTE | 2019-03-22 20:15 | NUR ---
pt took hs meds no complaints at this time, positioned to comfort after this.
--- NOTE | 2019-03-22 22:15 | NUR ---
resting eyes closed no changes ct to suction.
[2019-03-22 23:00] VITALS: BP 98/55
--- NOTE | 2019-03-22 23:00 | NUR ---
pt awoke vss no complaints or s&S of distress at this time,
--- NOTE | 2019-03-23 00:24 | NUR ---
resting eyes closed without changes.
--- NOTE | 2019-03-23 02:20 | NUR ---
pt larry realized early am frustrated as she states she gets confused at times.
[2019-03-23 02:51] VITALS: BP 94/58
--- NOTE | 2019-03-23 03:13 | NUR ---
resting eyes closed.
--- NOTE | 2019-03-23 05:05 | NUR ---
resting eyes closed no s&s of distress at this time. 10cc yellow serous fluid from chest tube,
[2019-03-23 06:06] LABS: BASOPHILS # (AUTO) 0.1 X10'3 (0-0.2); BASOPHILS % (AUTO) 0.7 % (0-1); EOSINOPHILS # (AUTO) 0.5 X10'3 (0-0.9); HEMATOCRIT 33.4 % (35.0-45.0); HEMOGLOBIN 11.3 g/dl (12.0-16.0); LYMPHOCYTES # (AUTO) 0.8 X10'3 (1.1-4.8); LYMPHOCYTES % (AUTO) 10.2 % (21-51); MEAN CORPUSCULAR HEMOGLOBIN 27.8 PG (27.0-31.0); MEAN CORPUSCULAR HGB CONC 33.8 g/dL (33.0-36.5); MEAN CORPUSCULAR VOLUME 82.2 FL (78-98); MEAN PLATELET VOLUME 6.6 FL (7.4-10.4); MONOCYTES # (AUTO) 0.6 X10'3 (0-0.9); MONOCYTES % (AUTO) 7.9 % (2-12); NEUTROPHILS # (AUTO) 5.8 X10'3 (1.8-7.7); NEUTROPHILS % (AUTO) 75.2 % (42-75); PLATELET COUNT 396 X10'3 (140-440); RED BLOOD COUNT 4.07 X10'6 (4.20-5.60); RED CELL DISTRIBUTION WIDTH 14.5 % (11.5-14.5); WHITE BLOOD COUNT 7.6 X10'3 (4.5-11.0)
[2019-03-23 06:07] LABS: ANION GAP 5 (8-16); BLOOD UREA NITROGEN 13 MG/DL (7-18); BUN/CREATININE RATIO 18.1 (6.6-38.0); CHLORIDE 106 MMOL/L (99-107); CREATININE 0.72 MG/DL (0.40-0.90); GLUCOSE 91 MG/DL (70-104); POTASSIUM 3.9 MMOL/L (3.5-5.1); SODIUM 139 MMOL/L (135-145); eGFR 78 ML/MIN
--- NOTE | 2019-03-23 06:45 | NUR ---
Problems reprioritized. Patient report given, questions answered & plan of care reviewed with Linda Oliver. Addendum: 03/23/19 at 0646 by Elizabeth Timmons RN Amended: Links added.
[2019-03-23 07:00] VITALS: BP 104/56
--- NOTE | 2019-03-23 07:19 | NUR ---
Patient in room PCU 3024. I have received report from ARIELLE Johnson and had the opportunity to ask questions and assume patient care.
[2019-03-23] MEDS: metoprolol tartrate 12.5mg (1/2 tablet) PO SCH ×2 (08:00→20:06)
[2019-03-23] MEDS: amLODIPine 2.5mg tablet PO SCH (08:00)
[2019-03-23 08:50] VITALS: BP 98/63
[2019-03-23] MEDS: levetiracetam 250mg tablet PO SCH ×2 (08:54→20:07)
--- NOTE | 2019-03-23 09:30 | NUR ---
Notified by radiotelegraphist of pt going in to SVT. Pt immediately assessed, found sitting up in bed complaining of dizziness. Pt denied nausea. Assisted pt to supine position. medical research tech notified this RN that SVT had resolved after 3 minutes. Pt's stated that pt has history of SVT with cad drafter Dr. Arguelles not concerned with episodes that resolve quickly. Pt and educated on importance of fall prevention during episodes of SVT and changing to a seated or supine position if standing. Education also provided on vagal maneuvers. Will continue to closely monitor.
--- NOTE | 2019-03-23 09:55 | NUR ---
Paged Dr. Duffy re run of SVT. PAGER ID: [phone] MESSAGE: Pt Rafiq Justin in [id number] had a 3 minute run of SVT, now resolved. Pt has hx of SVT. Thanks! Linda GUZMÁN [phone]
[2019-03-23 11:00] VITALS: BP 116/67
--- NOTE | 2019-03-23 14:43 | NUR ---
Paged Dr. Duffy re pt's concerns. PAGER ID: [phone] MESSAGE: Pt Rafiq Anderson in [id number]. Pt reporting "seizures" in arms. Pt stable. Thanks! Linda GUZMÁN [phone]
[2019-03-23 15:00] VITALS: BP 113/63
[2019-03-23 18:00] VITALS: BP 111/67
--- NOTE | 2019-03-23 18:45 | NUR ---
Problems reprioritized. Patient report given, questions answered & plan of care reviewed with ARIELLE Bear.
--- NOTE | 2019-03-23 18:59 | NUR ---
Patient in room PCU 3024. I have received report from Linda GUZMÁN and had the opportunity to ask questions and assume patient care.
--- NOTE | 2019-03-23 20:11 | NUR ---
[place] documentation: I have reviewed and agree with all interventions, assessments performed and documented by ARIELLE Estes.
[2019-03-24] VITALS (9 sets, daily range): BP systolic 90–116; BP diastolic 48–76
--- NOTE | 2019-03-24 06:50 | NUR ---
Problems reprioritized. Patient report given, questions answered & plan of care reviewed with Easton RN.
--- NOTE | 2019-03-24 07:00 | NUR ---
Patient in room PCU 3024. I have received report from ARIELLE CONCEPCION and had the opportunity to ask questions and assume patient care.
[2019-03-24] MEDS: levetiracetam 250mg tablet PO SCH ×2 (07:59→20:24)
[2019-03-24] MEDS: amLODIPine 2.5mg tablet PO SCH (08:00)
[2019-03-24] MEDS: metoprolol tartrate 12.5mg (1/2 tablet) PO SCH ×2 (08:01→20:25)
--- NOTE | 2019-03-24 13:45 | NUR ---
Initial: Pt admit with SOB, large left-sided PE, and lung masses. Pt s/p chest tube placement with 290 cc's out per MD notes. Lung masses possible malignancy, s/p lung biopsy pending results per MD notes. Pt currently on a regular diet with documented 25-50% PO intake with 100% PO intake at breakfast this morning. Pt seen at bedside endorses a low appetite. Pt denies any food preferences at this time however reports that family is bringing in Premier Protein of which she drinks one a day, pancakes at breakfast, and ice cream. RD informed pt of ONS available at [facility] however pt declined and states she would like to continue with the Premier Protein brought in by her SO. Pt requests vanilla ice cream at meals, d/w dietary to send BIDLD. RD provided alternative write in menu to provide additional food options. Pt denies any food allergies and reports difficulty chewing d/t dentures however denies any texture modifications or gravy on meat at this time. RD contact information provided in case pt has any questions or requests. [facility] 03/23. Will continue to follow. Recommendations: 1) Continue with regular diet 2) [place] food preferences; vanilla ice cream BIDLD 3) Continue Premier Protein DQ 4) Wt per rx Addendum: 03/24/19 at [address] Amended: Links added.
--- NOTE | 2019-03-24 15:01 | NUR ---
PAGER ID: [phone] MESSAGE: DR. CARTER, 3024B/USHA, AT 1400 HAD SHORT BURST OF SVT HR 150. WAS SLEEPING, ASX/. BP 109/62 , HR 85. HAS A HX OF THIS. BRODERICK [id number]. TY
--- NOTE | 2019-03-24 15:37 | NUR ---
PAGER ID: [phone] MESSAGE: DR. CARTER, 5846I/USHA. CYTOLOGY REPORT BACK ON LEFT PLEURAL FLUID, IS IN CHART. BRODERICK,[id number], TY.
--- NOTE | 2019-03-24 18:45 | NUR ---
Problems reprioritized. Patient report given, questions answered & plan of care reviewed with ABIMAEL RN.
--- NOTE | 2019-03-24 19:01 | NUR ---
Patient in room PCU 3024B. I have received report from ARIELLE Mccormack and had the opportunity to ask questions and assume patient care. Patient awake for bedside report. Chest tube 1520 mL/hr at change of shift.
[2019-03-25 03:00] VITALS: BP 92/55
--- NOTE | 2019-03-25 06:11 | NUR ---
Problems reprioritized. Patient report given, questions answered & plan of care reviewed with ARIELLE [place] and jose.
--- NOTE | 2019-03-25 06:12 | NUR ---
[place] documentation: I have reviewed and agree with all interventions, assessments performed and documented by Stephen GUZMÁN. [place] Medication Administration: For this medication-pass time frame, all medication were reviewed, dispensed, administered and documented per hospital policy by Stephen GUZMÁN.
--- NOTE | 2019-03-25 06:36 | NUR ---
Patient in room PCU 3024. I have received report from Casey GUZMÁN and had the opportunity to ask questions and assume patient care. Patient sleeping, will continue to monitor.
[2019-03-25 07:00] VITALS: BP 92/58
[2019-03-25] MEDS: levetiracetam 250mg tablet PO SCH ×2 (07:30→21:28)
[2019-03-25] MEDS: amLODIPine 2.5mg tablet PO SCH (08:00)
[2019-03-25] MEDS: metoprolol tartrate 12.5mg (1/2 tablet) PO SCH ×2 (08:00→21:29)
[2019-03-25 11:00] VITALS: BP 106/62
[2019-03-25 15:00] VITALS: BP 108/85
--- NOTE | 2019-03-25 18:22 | NUR ---
Problems reprioritized. Patient report given, questions answered & plan of care reviewed with Leslie GUZMÁN. Patient stable at transfer of care.
[2019-03-25 19:00] VITALS: BP 110/61
[2019-03-25 23:00] VITALS: BP 96/62
[2019-03-26 03:00] VITALS: BP 88/60
[2019-03-26 05:36] LABS: BASOPHILS # (AUTO) 0.1 X10'3 (0-0.2); BASOPHILS % (AUTO) 1.1 % (0-1); EOSINOPHILS # (AUTO) 0.2 X10'3 (0-0.9); EOSINOPHILS % (AUTO) 3.3 % (0-6); HEMOGLOBIN 11.4 g/dl (12.0-16.0); LYMPHOCYTES % (AUTO) 16.4 % (21-51); MEAN CORPUSCULAR HEMOGLOBIN 27.7 PG (27.0-31.0); MEAN CORPUSCULAR HGB CONC 33.6 g/dL (33.0-36.5); MEAN CORPUSCULAR VOLUME 82.4 FL (78-98); MEAN PLATELET VOLUME 6.4 FL (7.4-10.4); MONOCYTES # (AUTO) 0.6 X10'3 (0-0.9); MONOCYTES % (AUTO) 9.9 % (2-12); NEUTROPHILS # (AUTO) 4.3 X10'3 (1.8-7.7); NEUTROPHILS % (AUTO) 69.3 % (42-75); PLATELET COUNT 441 X10'3 (140-440); RED BLOOD COUNT 4.12 X10'6 (4.20-5.60); RED CELL DISTRIBUTION WIDTH 14.6 % (11.5-14.5); WHITE BLOOD COUNT 6.2 X10'3 (4.5-11.0)
[2019-03-26 06:00] VITALS: BP 96/57
--- NOTE | 2019-03-26 06:20 | NUR ---
Patient in room PCU 3024. I have received report from Leslie GUZMÁN and had the opportunity to ask questions and assume patient care.
--- NOTE | 2019-03-26 07:43 | NUR ---
PAGER ID: [phone] MESSAGE: [phone] Rafiq Nolasco Plan was for pt to be discharged today, is that still true? IR called and would like to postpone Aspira if pt is not going to be discharged today. Please call Bel #[phone]
[2019-03-26] MEDS: metoprolol tartrate 12.5mg (1/2 tablet) PO SCH (08:00)
[2019-03-26] MEDS: amLODIPine 2.5mg tablet PO SCH (08:00)
[2019-03-26] MEDS: levetiracetam 250mg tablet PO SCH (08:02)
[2019-03-26 11:00] VITALS: BP 99/56
[2019-03-26 15:00] VITALS: BP 122/73
--- NOTE | 2019-03-26 15:16 | NUR ---
PAGER ID: [phone] MESSAGE: Rafiq Anderson, [id number], IR just came up and did ultrasound, not enough fluid in space to place ASPIRA, they will DC chest tube and set an appointment for out pt follow up for Saturday or . orders for discharge? Kitty [phone]
[2019-03-26] MEDS ORDERED: FURO20TA4 PO (16:00)
[2019-03-26] MEDS ORDERED: METO25TA6 PO (16:00)
--- NOTE | 2019-03-26 16:30 | NUR ---
Assessed puncture site from chest tube. Dressing has a small amount (quarter size) of yellow drainage. Pt denies SOB and pain at the site. Skin around dressing is CDI. Will continue to monitor.
== END 2019-03-26 17:15 | disposition home health service (06) | DRG 180 ==
LOC: ER 08:47 → PCU 3S 16:56 → CMPBEDREQ 03-21 15:12 → PCU 3S 03-21 21:35
PROVIDERS: ADMIT Family Medicine; ATTEND Internal Medicine
PROC: 0W9B30Z Drainage of Left Pleural Cavity with Drainage Device, Percutaneous Approach (ICD-10-PCS; principal; 2019-03-19)
PROC: 0WB83ZX Excision of Chest Wall, Percutaneous Approach, Diagnostic (ICD-10-PCS; 2019-03-20)
PROC: 0WP830Z Removal of Drainage Device from Chest Wall, Percutaneous Approach (ICD-10-PCS; 2019-03-26)
DX: C34.92 Malignant neoplasm of unspecified part of left bronchus or lung (principal); J96.01 Acute respiratory failure with hypoxia; E43 Unspecified severe protein-calorie malnutrition; J91.8 Pleural effusion in other conditions classified elsewhere; G40.909 Epilepsy, unspecified, not intractable, without status epilepticus; I10 Essential (primary) hypertension; F41.9 Anxiety disorder, unspecified; Z85.3 Personal history of malignant neoplasm of breast; Z90.12 Acquired absence of left breast and nipple; Z68.22 Body mass index [BMI] 22.0-22.9, adult; Z88.0 Allergy status to penicillin; Z88.2 Allergy status to sulfonamides; Z88.5 Allergy status to narcotic agent
CPT/HCPCS: 20206; 32557; 36415; 71045; 71046; 77012; 80048; 80053; 83605; 83880; 84484; 85025; 85610; 85730; 87040; 87070; 93005; 97116; 97161; 97530; 99285; G0378; J2001; J2250; J2405; J2765; J3010; J3490; J7030

== ENCOUNTER 2019-04-02 06:53 | Emergency (ER) | payer MEDICARE, OTHER ==
[~2019-04-02] VITALS: Ht 162.6 cm; Wt 55.9 kg
[~2019-04-02 06:53] MED LIST changes: -AMLO2.5T2 PO; -DOXY25TA58; +FURO20TA4 PO
--- NOTE | 2019-04-02 08:01 | NUR ---
Dr. Rosas okayed for patient to take home beatriz.
[2019-04-02 08:14] LABS: BASOPHILS % (AUTO) 0.8 % (0-1); EOSINOPHILS # (AUTO) 0.1 X10'3 (0-0.9); EOSINOPHILS % (AUTO) 1.3 % (0-6); HEMATOCRIT 33.2 % (35.0-45.0); HEMOGLOBIN 11.1 g/dl (12.0-16.0); LYMPHOCYTES # (AUTO) 0.7 X10'3 (1.1-4.8); LYMPHOCYTES % (AUTO) 12.2 % (21-51); MEAN CORPUSCULAR HEMOGLOBIN 27.3 PG (27.0-31.0); MEAN CORPUSCULAR HGB CONC 33.5 g/dL (33.0-36.5); MEAN CORPUSCULAR VOLUME 81.5 FL (78-98); MEAN PLATELET VOLUME 6.2 FL (7.4-10.4); MONOCYTES # (AUTO) 0.5 X10'3 (0-0.9); MONOCYTES % (AUTO) 9.3 % (2-12); NEUTROPHILS # (AUTO) 4.3 X10'3 (1.8-7.7); NEUTROPHILS % (AUTO) 76.4 % (42-75); PLATELET COUNT 499 X10'3 (140-440); RED BLOOD COUNT 4.08 X10'6 (4.20-5.60); RED CELL DISTRIBUTION WIDTH 14.8 % (11.5-14.5); WHITE BLOOD COUNT 5.7 X10'3 (4.5-11.0)
[2019-04-02 08:19] LABS: ALANINE AMINOTRANSFERASE 16 U/L (12-78); ALBUMIN 2.5 G/DL (3.4-5.0); ALBUMIN/GLOBULIN RATIO 0.7 (1.1-1.5); ALKALINE PHOSPHATASE 148 IU/L (46-116); ANION GAP 3 (8-16); ASPARTATE AMINO TRANSFERASE 16 U/L (10-37); BILIRUBIN,TOTAL 0.2 MG/DL (0.1-1.0); BLOOD UREA NITROGEN 15 MG/DL (7-18); CALCIUM 9.5 MG/DL (8.5-10.1); CHLORIDE 103 MMOL/L (99-107); CREATININE 0.88 MG/DL (0.40-0.90); GLUCOSE 101 MG/DL (70-104); POTASSIUM 3.9 MMOL/L (3.5-5.1); SODIUM 139 MMOL/L (135-145); TOTAL CARBON DIOXIDE 33.1 MMOL/L (24-32); TOTAL PROTEIN 6.3 G/DL (6.4-8.2); eGFR 62 ML/MIN
[2019-04-02 08:21] LABS: PARTIAL THROMBOPLASTIN TIME 26 SECONDS (22-32)
[2019-04-02 08:47] VITALS: BP 105/66
[2019-04-03] MEDS ORDERED: LEVE750T6 PO (08:32)
[2019-04-03] MEDS ORDERED: METO25TA6 PO (08:32)
[2019-04-03] MEDS ORDERED: FURO-150 PO (08:32)
== END 2019-04-02 09:10 | disposition home or self-care (01) ==
LOC: ER 06:54
DX: J90 Pleural effusion, not elsewhere classified (principal); I10 Essential (primary) hypertension; Z85.3 Personal history of malignant neoplasm of breast; Z98.890 Other specified postprocedural states; Z87.891 Personal history of nicotine dependence; Z79.899 Other long term (current) drug therapy; Z88.5 Allergy status to narcotic agent; Z88.2 Allergy status to sulfonamides; Z88.0 Allergy status to penicillin
CPT/HCPCS: 36415; 71046; 80053; 85025; 85610; 85730; 93005; 99284

== ENCOUNTER 2019-04-09 07:41 | Day surgery (SDC) | payer MEDICARE, OTHER ==
[~2019-04-09] VITALS: Ht 162.6 cm; Wt 56.8 kg
[~2019-04-09 07:41] MED LIST changes: +FURO-150 PO; -FURO20TA4 PO; -KEP500T PO; +LEVE750T6 PO; +LIDOcaine 1% 30ml preserv. free vial SQ STA
[2019-04-09 08:00] VITALS: BP 99/61
[2019-04-09 09:00] VITALS: BP 118/75
== END 2019-04-09 09:10 | disposition home or self-care (01) ==
LOC: SSTAY O 07:41
PROVIDERS: ATTEND Radiology Vascular & Interventional Radiology
DX: J90 Pleural effusion, not elsewhere classified (principal); Z53.8 Procedure and treatment not carried out for other reasons
CPT/HCPCS: 76604

== ENCOUNTER 2019-04-16 07:47 | Day surgery (SDC) | payer MEDICARE, OTHER ==
[~2019-04-16] VITALS: Ht 162.6 cm; Wt 54.3 kg
[~2019-04-16 07:47] MED LIST changes: -LIDOcaine 1% 30ml preserv. free vial SQ STA
[2019-04-16 08:04] VITALS: BP 115/76
[2019-04-16 08:20] VITALS: BP 115/76
[2019-04-16 08:30] VITALS: BP 113/66
[2019-04-16 09:12] VITALS: BP 107/70
== END 2019-04-16 09:20 | disposition home or self-care (01) ==
LOC: SSTAY O 07:47
PROVIDERS: ATTEND Radiology Diagnostic Radiology
DX: J90 Pleural effusion, not elsewhere classified (principal); G40.909 Epilepsy, unspecified, not intractable, without status epilepticus; I10 Essential (primary) hypertension; Z85.3 Personal history of malignant neoplasm of breast; Z90.12 Acquired absence of left breast and nipple; Z88.0 Allergy status to penicillin; Z88.6 Allergy status to analgesic agent; Z88.2 Allergy status to sulfonamides; Z91.040 Latex allergy status; Z79.899 Other long term (current) drug therapy; Z85.118 Personal history of other malignant neoplasm of bronchus and lung
CPT/HCPCS: 32555; 71045; C1729

== ENCOUNTER 2019-04-27 07:51 | Emergency (ER) | payer MEDICARE, OTHER ==
[~2019-04-27] VITALS: Ht 162.6 cm; Wt 54.0 kg
--- NOTE | 2019-04-27 07:55 | NUR ---
PT. CAME IN BY AMBULANCE, EMS STATED THAT SHE MEETS THEM IN THE DRIVEWAY WHEN SHE CALLS, AND HER FOLLOWS THEM IN. I ASKED HER " IF YOU CAN WALK WITHOUT DISTRESS AND YOUR DRIVES DOWN HERE EVERY TIME. WHY DOESN'T YOUR BRING YOU TO THE ER... SHE SAID" BECAUSE IF I CALL THE AMBULANCE I DO NOT HAVE TO WAIT"
--- NOTE | 2019-04-27 07:58 | NUR ---
I EDUCATED THE PT. ON THE REASONS SHE SHOULD CALL AN AMBULANCE, HAVING DIFFICULTY BREATHING AND EMERGENT REASONS NOT TO PREVENT WAITING.
--- NOTE | 2019-04-27 08:40 | NUR ---
spoke to haydee with psychosocial rehabilitation counselor who will visit patient and spouse and provide information about hospice - possible follow up with an oncologist and/or pulmologist.
[2019-04-27] MEDS ORDERED: LIDOcaine 1% w/epiNEPHrine 1:200,000 30ml vial IM ONE (10:20)
[2019-04-27] MEDS ORDERED: ondansetron 4mg rapidly disintigrating tab PO ONE (10:20)
[2019-04-27 12:29] VITALS: BP 103/6
== END 2019-04-27 12:31 | disposition home or self-care (01) ==
LOC: ER 07:52
DX: J90 Pleural effusion, not elsewhere classified (principal); R06.09 Other forms of dyspnea; I10 Essential (primary) hypertension; Z88.2 Allergy status to sulfonamides; Z88.5 Allergy status to narcotic agent; Z88.0 Allergy status to penicillin; Z79.899 Other long term (current) drug therapy
CPT/HCPCS: 71045; 71046; 96372; 99283; J3490

== ENCOUNTER 2019-04-30 07:08 | Day surgery (SDC) | payer MEDICARE, OTHER ==
[2019-04-30] VITALS (8 sets, daily range): BP systolic 102–142; BP diastolic 59–99
[~2019-04-30] VITALS: Ht 157.5 cm; Wt 54.6 kg
[2019-04-30] MEDS ORDERED: ondansetron 4mg rapidly disintigrating tab PO ONE (08:10)
[2019-04-30] MEDS ORDERED: LIDOcaine 1% 30ml preserv. free vial SQ STA (08:26)
[2019-04-30] MEDS ORDERED: fentaNYL/PF 50MCG/1 ML 2ML syringe IV PRN (09:00)
== END 2019-04-30 12:20 | disposition home or self-care (01) ==
LOC: SSTAY O 07:08
PROVIDERS: ATTEND Radiology Diagnostic Radiology
DX: J90 Pleural effusion, not elsewhere classified (principal); I10 Essential (primary) hypertension; G40.909 Epilepsy, unspecified, not intractable, without status epilepticus; Z85.3 Personal history of malignant neoplasm of breast; Z88.0 Allergy status to penicillin; Z88.6 Allergy status to analgesic agent; Z88.2 Allergy status to sulfonamides; Z88.8 Allergy status to other drugs, medicaments and biological substances; Z79.899 Other long term (current) drug therapy; Z90.12 Acquired absence of left breast and nipple; Z85.118 Personal history of other malignant neoplasm of bronchus and lung
CPT/HCPCS: 32550; 71045; 75989; 99152; 99153; J2405; J3010; J3490